=== PATIENT | male | born 1985 | race Hispanic/Latino ===

== ENCOUNTER 2018-05-03 07:51 | Outpatient (CLI) | payer OTHER ==
[2018-05-03] MEDS ORDERED: Gadobenate Dimeglumine 529 MG/1 ML (20ML VIAL) ONE (09:00)
--- NOTE | 2018-05-03 12:21 | MRI ---
MRI BRAIN WITH AND WITHOUT CONTRAST: HISTORY: The patient has a history of seizures. Three episodes since 2004. The patient has not had a seizure in the past year. COMPARISON: None. TECHNIQUE: MRI brain is performed with and without intravenous Gadolinium administration. Multisequential, mult iplanar imaging is performed. FINDINGS: Calvarium has a normal T1 marrow signal intensity. Midline brain parenchymal structures are unremark able. No evidence of hemorrhage on the axial gradient echo sequence. There are T2 and FLAIR hyperintensities involving the left hippocampus, without associated volume los s or enhancement. Mesiotemporal sclerosis is favored. The remainder of the left and right cerebrum are unremarkable. No pathologic enhancement of the brain parenchyma. Mild mucosal thickening of the paranasal sinuses. Adequate mastoid air cell aeration. IMPRESSION: Abnormal T2 and FLAIR hyperintensities involving the left hippocampus. 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 POS: [facility]
== END 2018-05-03 07:52 | disposition home or self-care (01) ==
LOC: SCSMRI 07:51
PROVIDERS: ATTEND Nurse Practitioner Acute Care
DX: G40.209 Localization-related (focal) (partial) symptomatic epilepsy and epileptic syndromes with complex partial seizures, not intractable, without status epilepticus (principal); G37.9 Demyelinating disease of central nervous system, unspecified; R90.89 Other abnormal findings on diagnostic imaging of central nervous system
CPT/HCPCS: 70553; A9579

== ENCOUNTER 2019-04-04 10:11 | Outpatient (CLI) | payer OTHER ==
--- NOTE | 2019-04-04 10:54 | ULT ---
US Abdominal: 04/04/2019 12:00 AM CLINICAL HISTORY: Elevated LFTs. History of cholecystectomy. STUDY: Complete abdominal ultrasound COMPARISON: None. FINDINGS: Liver: Size: Normal. Echogenicity: Hyperechoic consistent with hepatic steatosis. Contour: Smooth. Mass: None. Common bile duct: 7 mm Gallbladder: Removed Pancreas: Head, body, and tail appear normal. Inferior vena cava: Normal in caliber Aorta: Normal in caliber Spleen: No focal lesions. Spleen measuring 10.8 cm in length. Right kidney: No pelvicalyceal dilatation. Right kidney measuring 11.5 cm in length. Left kidney: No pelvicalyceal dilatation. Left kidney measuring 11.0 cm in length. IMPRESSION: Fatty liver
== END 2019-04-04 10:12 | disposition home or self-care (01) ==
LOC: SCSULT 10:11
PROVIDERS: ATTEND Family Medicine
DX: R74.8 Abnormal levels of other serum enzymes (principal); K76.0 Fatty (change of) liver, not elsewhere classified
CPT/HCPCS: 76700